=== PATIENT | male | born 1965 | race African-American/Black ===

== ENCOUNTER 2023-09-21 12:21 | Emergency (ER) | payer MEDICAID, OTHER ==
[~2023-09-21] VITALS: Ht 172.7 cm; Wt 70.0 kg
[2023-09-21 12:26] VITALS: O2SAT 98
[2023-09-21 13:38] LABS: BASOPHILS % 0.3 % (0.0-2.0); EOSINOPHILS % 1.1 % (0.0-5.0); HEMATOCRIT. 43.3 % (42.0-52.0); HEMOGLOBIN. 14.6 g/dL (14.0-18.0); MEAN CORPUSCULAR HEMOGLOBIN 30.2 pg (28.0-32.0); MEAN CORPUSCULAR HGB CONC 33.6 g/dL (31.0-37.0); MEAN CORPUSCULAR VOLUME 89.8 fL (80.0-94.0); MONOCYTES % 10.7 % (2.0-8.0); NEUTROPHILS % 51.9 % (40.0-76.0); PLATELET 156 x1000/uL (130-400); RED BLOOD CELL COUNT 4.83 mill/uL (4.7-6.1); RED CELL DISTRIBUTION WIDTH 15.1 % (11.6-14.6); WHITE BLOOD COUNT 5.5 x1000/uL (4.5-11.0)
[2023-09-21 13:43] LABS: CHLORIDE 106 mEq/L (98-107); SODIUM 141 mEq/L (136-145)
[2023-09-21 13:44] LABS: CARBON DIOXIDE 26 mEq/L (21-32)
[2023-09-21 13:45] LABS: CALCIUM 9.2 mg/dL (8.7-10.4)
[2023-09-21 13:49] LABS: CREATININE 1.5 mg/dL (0.6-1.3); GLUCOSE 102 mg/dL (70-105); TROPONIN I HIGH SENSITIVITY 31 ng/L (3.0-53); UREA NITROGEN BLOOD 18 mg/dL (9-23)
[2023-09-21 13:51] LABS: ALANINE AMINOTRANSFERASE 28 IU/L (10-49); ALBUMIN 4.7 g/dL (3.2-4.8); ASPARTATE AMINOTRANSFERASE 41 IU/L (<34)
[2023-09-21 13:52] LABS: BILIRUBIN TOTAL 1.3 mg/dL (0.1-1.0); PROTEIN TOTAL 7.3 g/dL (6.0-8.3)
[2023-09-21] MEDS: LACTATED RINGERS 1,000 ML IV SCH (14:42)
[2023-09-21] MEDS ORDERED: IOHEXOL-300 100 ML BOTTLE ONE (15:11)
[2023-09-21 16:11] LABS: TROPONIN I HIGH SENSITIVITY 40 ng/L (3.0-53)
[2023-09-21] MEDS ORDERED: CLONIDINE 0.1MG TABLET PO PRN (16:15)
[2023-09-21] MEDS ORDERED: ONDANSETRON HCL 4MG/2ML INJ IV PRN (16:15)
[2023-09-21] MEDS ORDERED: IPRATROPIUM/ALBUTEROL 0.5-3(2.5)MG/3ML NEB HHN PRN (16:15)
[2023-09-21] MEDS ORDERED: MAGNESIUM/ALUMINUM HYDROXIDE/SIMETHICONE 30ML UDC PO PRN (16:15)
[2023-09-21] MEDS ORDERED: ACETAMINOPHEN 325MG TABLET PO PRN ×2 (16:15)
[2023-09-21] MEDS ORDERED: DOCUSATE SODIUM 100MG CAPSULE PO PRN (16:15)
[2023-09-21] MEDS ORDERED: DIPHENHYDRAMINE 50MG/ML VIAL IV PRN (16:15)
[2023-09-21 16:53] LABS: T4 FREE 1.13 ng/dL (0.89-1.76)
[2023-09-21 16:54] LABS: THYROID STIMULATING HORMONE 0.51 uIU/mL (0.55-4.78)
[2023-09-21 16:58] LABS: CLARITY URINE CLEAR (CLEAR); COLOR URINE YELLOW (YELLOW); GLUCOSE URINE NEGATIVE (NEGATIVE); KETONES URINE NEGATIVE (NEGATIVE); LEUKOCYTE ESTERASE URINE TRACE (NEGATIVE); NITRITE URINE NEGATIVE (NEGATIVE); OCCULT BLOOD URINE NEGATIVE (NEGATIVE); PH URINE 7.5 (4.5-8.0); PROTEIN URINE TRACE (NEGATIVE)
[2023-09-21 16:59] LABS: *AMPHETAMINES SCREEN URINE NEGATIVE (NEGATIVE); *BARBITURATES SCREEN URINE NEGATIVE (NEGATIVE); *BENZODIAZEPINES SCREEN URINE NEGATIVE (NEGATIVE); *COCAINE SCREEN URINE PRESUMPTIVE POSITIVE (NEGATIVE); CANNABINOID URINE SCREEN NEGATIVE (NEGATIVE); ECSTASY MDMA SCREEN URINE NEGATIVE (NEGATIVE); METHADONE URINE SCREEN NEGATIVE (NEGATIVE); OPIATES URINE SCREEN NEGATIVE (NEGATIVE); PHENCYCLIDINE URINE SCREEN NEGATIVE (NEGATIVE)
[2023-09-21 17:06] LABS: RBC URINE 0-2 /hpf (0-2)
[2023-09-21 17:07] LABS: BACTERIA URINE FEW; SQUAMOUS EPITHELIAL CELL URINE FEW /lpf (RARE/1+); YEAST URINE NONE SEEN
[2023-09-21] MEDS ORDERED: NITROGLYCERIN 0.4MG TABLET SL SL PRN (17:30)
[2023-09-21 17:40] VITALS: BP 120/77; PULSE 70; RESP 14; TEMP 98
[2023-09-21] MEDS ORDERED: SODIUM CHLORIDE 0.45% 1,000 ML IV ONE (17:45)
[2023-09-21] MEDS ORDERED: ATORVASTATIN CALCIUM 20MG TABLET PO SCH (21:00)
[2023-09-22] MEDS ORDERED: CLOPIDOGREL 75MG TABLET PO SCH (09:00)
[2023-09-22] MEDS ORDERED: ASPIRIN 81MG TABLET PO SCH (09:00)
== END 2023-09-21 18:07 | disposition left against medical advice (07) ==
LOC: ER 12:21 → EDBD 12:21 → EDBEDREQ 16:14 → EDBEDREQTM 16:14 → CANBEDREQ 18:02 → ER 18:07
DX: R55 Syncope and collapse (principal)
CPT/HCPCS: 80061; 80053; 80305; 81003; 80320; 83036; 83880; 84439; 83605; 83690; 84443; 85025; 85379; 84484; 36415; 71045; 70450; 72125; 74177; 93005; 96360; 99291; Q9967; Z7610; G0480